=== PATIENT | female | born 1975 | race Caucasian/White ===

== ENCOUNTER 2017-04-30 09:18 | Inpatient (IN) | payer SELFPAY ==
[2017-04-30] VITALS (7 sets, daily range): BP systolic 107–123; BP diastolic 63–70; PULSE 71–89; RESP 16–18
[~2017-04-30] VITALS: Ht 152.4 cm; Wt 63.6 kg
[2017-04-30] MEDS ORDERED: HYDROCODONE/APAP (5/325) TAB PO ONE (10:30)
--- NOTE | 2017-04-30 10:45 | ERD ---
ER Documentation Chief Complaint Date/Time DATE: 04/30/17 TIME: 10:43 Chief Complaint VAG BLEED X 2 WEEKS HPI This a 42-year-old female who presents the emergency department today complaining of vaginal bleeding and some lower pelvic pain for the past 2-3 weeks. States that prior to that she had not had her period for 6 weeks. States that she went to her primary care doctor and was sent here to the emergency department. States she does not have an DEVELOPMENT SPEC and has not seen one in 4 years. Denies history of irregular menses. Denies any vomiting ,dysuria, , fevers or chills. ROS All systems reviewed and are negative except as per history of present illness. Allergies Allergies: Coded Allergies: No Known Allergy (Unverified , 04/30/17) PMhx/Soc Hx Alcohol Use: No Hx Substance Use: No Hx Tobacco Use: Yes Smoking Status: Light tobacco smoker Physical Exam Vitals Vital Signs Date Time Temp Pulse Resp B/P Pulse Ox O2 Delivery O2 Flow Rate FiO2 04/30/17 09:20 98.0 74 18 125/65 99 Physical Exam Const: No acute distress Head: Atraumatic Eyes: Normal Conjunctiva ENT: Normal External Ears, Nose and Mouth. Neck: Full range of motion..~ No meningismus. Resp: Clear to auscultation bilaterally Cardio: Regular rate and rhythm, no murmurs Abd: Soft, pelvic pain non distended. Normal bowel sounds. No tenderness McBurney's Skin: No petechiae or rashes Back: No midline or flank tenderness Ext: No cyanosis, or edema Neur: Awake and alert Psych: Normal Mood and Affect Result Diagram: 04/30/17 1020 04/30/17 1020 Results 24 hrs Laboratory Tests Test 04/30/17 10:20 04/30/17 10:43 White Blood Count 4.010^3/ul Red Blood Count 3.2210^6/ul Hemoglobin 6.8g/dl Hematocrit 24.0% Mean Corpuscular Volume 74.5fl Mean Corpuscular Hemoglobin 21.1pg Mean Corpuscular Hemoglobin Concent 28.3g/dl Red Cell Distribution Width 17.1% Platelet Count 00489^3/UL Mean Platelet Volume 9.6fl Sodium Level 145mmol/L Potassium Level 3.7mmol/L Chloride Level 98mmol/L Carbon Dioxide Level 29mmol/L Anion Gap 22 Blood Urea Nitrogen 11mg/dl Creatinine 0.61mg/dl Glucose Level 80mg/dl Calcium Level 9.4mg/dl Total Bilirubin 0.1mg/dl Direct Bilirubin 0.00mg/dl Indirect Bilirubin 0.1mg/dl Aspartate Amino Transf (AST/SGOT) 26IU/L Alanine Aminotransferase (ALT/SGPT) 33IU/L Alkaline Phosphatase 67IU/L Total Protein 8.2g/dl Albumin 4.4g/dl Globulin 3.80g/dl Albumin/Globulin Ratio 1.15 Urine Color DK. RED Urine Clarity BLOODY Urine pH 5.0 Urine Specific [place] 1.020 Urine Ketones TRACE Urine Nitrite POSITIVE Urine Bilirubin NEGATIVE Urine Urobilinogen 1.0 E.U./dL Urine Leukocyte Esterase 1+ Urine Microscopic RBC >200/HPF Urine Microscopic WBC 5-10/HPF Urine Squamous Epithelial Cells FEW/HPF Urine Bacteria FEW/HPF Urine Hemoglobin 3+ Urine Glucose NEGATIVE% Urine Total Protein 4+ Current Medications Medications (Trade) Dose Ordered Sig/Arin Route PRN Reason Start Time Stop Time Status Last Admin Dose Admin Acetaminophen/ Hydrocodone Bitart 1 tab 1 tab ONCE ONCE PO 04/30/17 10:30 04/30/17 10:31 DC 04/30/17 10:33 Ceftriaxone Sodium (Rocephin) 50 ml @ 100 mls/hr ONCE ONCE IVPB 04/30/17 12:30 04/30/17 12:59 DC 04/30/17 12:33 DIAGNOSTIC IMAGING REPORT Patient: KAYLA FARNSWORTH : 1975 Age: 42 Sex: F [id number] DOS: 04/30/17 0000 Ordering MD: ANT ALVARENGA PA-C Location: [facility] Room/Bed: PROCEDURE: US Pelvis CLINICAL INDICATION: vaginal bleeding x 3 weeks, pelvic pain TECHNIQUE: Multiple sonographic images of the pelvis were obtained utilizing a transabdominal technique. The images were reviewed on a PACS workstation. COMPARISON: None. LMP: 04/07/2017 FINDINGS: The uterus measures 18.0 x 8.5 x 13.4 cm. The endometrial echo complex is not well visualized. The uterus is heterogeneous. The right ovary is not definitely identified. The left ovary measures 7.4 x 3.7 x 6.2 cm. There is normal vascular flow in the left ovary. There is a 7.3 cm round cystic lesion in the right adnexa with eccentric low level internal echoes. It is not associated with vascular flow. There is a 3.8 x 2.7 cm isoechoic lesion with mild posterior acoustic enhancement and prominent peripheral vascular flow in the left ovary. There is an adjacent irregularly shaped oblong 3.3 x 1.6 cm cystic lesion in the left adnexa with low level internal echoes which is not associated with vascular flow. No significant pelvic free fluid is identified. IMPRESSION: The right ovary is not definitively identified although there is a 7.3 cm mildly complex cystic lesion in the right adnexa which may be ovarian in origin. Lesions of this size are incompletely evaluated with ultrasound. An MRI of the pelvis without and with intravenous contrast is recommended for further evaluation. 3.8 cm isoechoic lesion in the left ovary with prominent peripheral vascular flow. This lesion appears to be solid although it may contain cystic components given its posterior acoustic enhancement. This lesion can also be evaluated on the recommended MRI of the pelvis. 3.3 cm oblong cystic lesion in the left adnexa is nonspecific and may be a ruptured hemorrhagic/corpus luteal cyst or paraovarian cyst. It can also be reevaluated on MRI. The uterus is heterogeneous and the endometrial echo complex is not well visualized. Findings are nonspecific, but suggest adenomyosis. Clinical correlation is recommended. Of note, MRI is superior to ultrasound in the evaluation of adenomyosis. RPTAT: EE Physician Negra Date Time Electronically viewed and signed by Quinten Farley Physician on 04/30/2017 11:18 RA/ CC: ANT ALVARENGA PA-C/[facility] This 42-year-old female who presents to the emergency department today complaining of vaginal bleeding for the past 3 weeks. Patient was sent here by her primary care clinic [facility] [facility]. Sanju Kennedy with a diagnosis of possible menorrhagia. Given patient's complaints of persistent vaginal bleeding I did obtain laboratory workup as well as an ultrasound Laboratory work shows no elevated white blood cell count. Her hemoglobin is 6.8 and her hematocrit is 24. Platelets are within normal limits. Sodium is very mildly elevated otherwise electrolytes are within normal limits. Glucose within normal limits. Liver enzymes are within normal limits. UA shows positive nitrites and 1+ leukocyte esterase. Urine test is negative Ultrasound shows right ovary not definitively identified although there is 7.3 cm complex cystic lesion in the right adnexa which may be ovarian in origin. There is a 3.8 cm isoechoic lesion in the left ovary with prominent peripheral vascular flow. Lesion appears to be solid although it may contain cystic composed and given its posterior acoustic enhancement. There is a 3.3 cm oblong cystic lesion in the left adnexa nonspecific and may be ruptured hemorrhagic or corpus luteal cyst or paraovarian cyst. The uterus is heterogeneous and endometrial echo complex is not well visualized. Findings are nonspecific but may suggest adenomyosis Patient symptoms at this time is consistent with vaginal bleeding, anemia and urinary tract infection She was given Addison here in the emergency department for pain. I also give the patient Rocephin here for her urinary tract infection. Patient's hemoglobin is 6.8 and she does require transfusion at this time. I have discussed the results with Dr. Plascencia , the attending physician. I also placed a call to the laborist construction technology instructor , Dr. Perez, who is agreed to come evaluate the patient here in the emergency department. I explained the risks and benefits of transfusion to the patient including risk of hepatitis, HIV or autoimmune reaction and patient agreed to proceed Any further orders placed will be done by Dr. Plascencia, laborist or admitting physician. Departure Diagnosis: Primary Impression: Vaginal bleeding Additional Impression: Anemia Anemia type: unspecified type Qualified Code: D64.9 - Anemia, unspecified type Condition: ANT Clark PA-C Apr 30, 2017 10:45
[2017-04-30 10:55] LABS: ADD SCAN DIFF NO
[2017-04-30 11:11] LABS: ADD UMIC YES; UR BILIRUBIN (Dip) NEGATIVE (NEGATIVE); UR BLOOD (Dip) 3+ (NEGATIVE); UR COLOR DK. RED (YELLOW); UR GLUCOSE (Dip) NEGATIVE (NEGATIVE); UR KETONES (Dip) TRACE (NEGATIVE); UR LEUKOCYTE ESTERASE (Dip) 1+ (NEGATIVE); UR NITRITE (Dip) POSITIVE (NEGATIVE); UR TOTAL PROTEIN (Dip) 4+ (NEGATIVE); UR UROBILINOGEN (Dip) 1.0 E.U./dL (0.1-1.0)
[2017-04-30 11:16] LABS: ALBUMIN 4.4 g/dl (3.3-4.9); ALBUMIN/GLOBULIN RATIO 1.15; BILIRUBIN,INDIRECT 0.1 mg/dl (0-1.1); BILIRUBIN,TOTAL 0.1 mg/dl (0.2-1.3); CALCIUM 9.4 mg/dl (8.4-10.2); CREATININE 0.61 mg/dl (0.44-1.00); POTASSIUM 3.7 mmol/L (3.5-5.1); TOTAL PROTEIN 8.2 g/dl (6.1-8.1)
--- NOTE | 2017-04-30 11:18 | RADRPT ---
PROCEDURE: US Pelvis CLINICAL INDICATION: vaginal bleeding x 3 weeks, pelvic pain TECHNIQUE: Multiple sonographic images of the pelvis were obtained utilizing a transabdominal tech nique. The images were reviewed on a PACS workstation. COMPARISON: None. LMP: 04/07/2017 FINDINGS: The uterus measures 18.0 x 8.5 x 13.4 cm. The endometrial echo complex is not well visualized. The uterus is heterogeneous. The right ovary is not definitely identified. The left ovary measures 7.4 x 3.7 x 6.2 cm. There is n ormal vascular flow in the left ovary. There is a 7.3 cm round cystic lesion in the right adnexa with eccentric low level internal echoes. It is not associated with vascular flow. There is a 3.8 x 2.7 cm isoechoic lesion with mild posterior acoustic enhancement and prominent sydnee pheral vascular flow in the left ovary. There is an adjacent irregularly shaped oblong 3.3 x 1.6 cm cystic lesion in the left adnexa with low level internal echoes which is not associated with vascul ar flow. No significant pelvic free fluid is identified. IMPRESSION: The right ovary is not definitively identified although there is a 7.3 cm mildly complex cystic lesi on in the right adnexa which may be ovarian in origin. Lesions of this size are incompletely evalua levon with ultrasound. An MRI of the pelvis without and with intravenous contrast is recommended for further evaluation. 3.8 cm isoechoic lesion in the left ovary with prominent peripheral vascular flow. This lesion appe ars to be solid although it may contain cystic components given its posterior acoustic enhancement. This lesion can also be evaluated on the recommended MRI of the pelvis. 3.3 cm oblong cystic lesion in the left adnexa is nonspecific and may be a ruptured hemorrhagic/sina us luteal cyst or paraovarian cyst. It can also be reevaluated on MRI. The uterus is heterogeneous and the endometrial echo complex is not well visualized. Findings are n onspecific, but suggest adenomyosis. Clinical correlation is recommended. Of note, MRI is superior to ultrasound in the evaluation of adenomyosis. RPTAT: EE Quinten Farley Physician Date Time Electronically viewed and signed by Quinten Miguelito, Physician on 04/30/2017 11:18 RA/
[2017-04-30 11:26] LABS: UR CLARITY BLOODY (CLEAR)
[2017-04-30 11:27] LABS: UR BACTERIA FEW /HPF (NONE SEEN); UR SQUAMOUS EPITHELIAL CELL FEW /HPF (FEW); URINE RBCS >200 /HPF (0)
[2017-04-30 11:59] LABS: ABNORMAL IP MESSAGE 1; MEAN CORPUSCULAR HEMOGLOBIN 21.1 pg (29.0-33.0); MEAN CORPUSCULAR HGB CONC 28.3 g/dl (32.0-37.0); MEAN CORPUSCULAR VOLUME 74.5 fl (82.0-101.0); MEAN PLATELET VOLUME 9.6 fl (7.4-10.4); PLATELET COUNT 392 10^3/UL (140-415); RED BLOOD COUNT 3.22 10^6/ul (4.20-5.40); RED CELL DISTRIBUTION WIDTH 17.1 % (11.5-14.5)
[2017-04-30 12:03] LABS: HEMOGLOBIN 6.8 g/dl (12.0-16.0)
[2017-04-30] MEDS ORDERED: CEFTRIAXONE 1 GM/50 ML (PMX) 50 ML IVPB ONE (12:30)
[2017-04-30] MEDS ORDERED: DOCUSATE SODIUM 100 MG CAP PO PRN (16:30)
[2017-04-30] MEDS ORDERED: HYDROCODONE/APAP (5/325) TAB PO PRN (16:30)
[2017-04-30] MEDS ORDERED: NACL 0.9% 3 ML SYG IV SCH (16:30)
[2017-04-30] MEDS ORDERED: ZOLPIDEM 5 MG TAB PO PRN (16:30)
[2017-04-30] MEDS ORDERED: morphine 2 MG INJ IV PRN (16:30)
[2017-04-30] MEDS ORDERED: ONDANSETRON 4 MG INJ IV PRN (16:30)
--- NOTE | 2017-04-30 17:01 | HP ---
Date/Time of Note Date/Time of Note DATE: 04/30/17 TIME: 16:56 Assessment/Plan VTE Prophylaxis VTE Prophylaxis Intervention: SCD's Assessment/Plan Chief Complaint/Hosp Course 1. Severe anemia secondary to heavy vaginal bleeding Transfuse 2 units packed red blood cells Follow-up on gynecology recommendations Check iron panel 2. Hypernatremia D5W 3. UTI Rocephin and follow-up urine culture Prophylaxis: SCDs Problems: HPI/ROS Admit Date/Time Admit Date/Time Apr 30, 2017 at 12:55 Hx of Present Illness Patient is a 42-year-old female with no medical history, patient presents with 3 weeks of heavy vaginal bleeding. Patient denies any such excessive vaginal bleeding in the past. 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 Patient presents with pelvic pain as well as complaint of vaginal bleeding. Gynecology has already been consulted in the ED, patient has no other complaints except for headache. ROS Constitutional: improved, no complaints Eyes: no complaints ENT: no complaints Respiratory: no complaints Cardiovascular: no complaints Gastrointestinal: no complaints Genitourinary: bleeding Musculoskeletal: no complaints Skin: no complaints Neurologic: headache Endocrine: no complaints Lymphatic: no complaints Psychological: nl mood/affect, no complaints Immunologic: no complaints PMH/Family/Social Past Medical History Medical History: no pertinent history Past Surgical History Past Surgical Hx: no surgical history Family History Significant Family History: no pertinent family hx Social History Smoking Status: Current some day smoker Drug Use: none Exam/Review of Systems Vital Signs Vitals Vital Signs Date Time Temp Pulse Resp B/P Pulse Ox O2 Delivery O2 Flow Rate FiO2 04/30/17 09:20 98.0 74 18 125/65 99 Exam Constitutional: alert, oriented, well developed Psych: nl mood/affect, no complaints Head: atraumatic, normocephalic Eyes: EOMI, PERRL, nl conjunctiva, nl lids, nl sclera ENMT: nl external ears & nose, nl lips & teeth, nl nasal mucosa & septum Neck: non-tender, supple Respiratory: clear to auscultation, normal air movement Cardiovascular: nl pulses, regular rate and rhythm Gastrointestinal: nl liver, spleen, non-tender, soft Musculoskeletal: nl extremities to inspection Extremities: normal pulses Neurological: MANAGER CARDIAC II-XII intact, nl mental status, nl speech, nl strength Skin: nl turgor, No rash or lesions Lymph: nl lymph nodes Labs Result Diagram: 04/30/17 1020 04/30/17 1020 Medications Medications Current Medications Ondansetron HCl (Zofran Inj) 4 mg Q6H PRN IV NAUSEA AND/OR VOMITING; Start at 16:30 Acetaminophen (Tylenol Tab) 650 mg Q6H PRN PO PAIN LEVEL 1-3 OR FEVER; Start at 16:30 Acetaminophen/ Hydrocodone Bitart ([place] (5/325)) 1 tab Q6H PRN PO MODERATE PAIN LEVEL 4-6; Start 04/30/17 at 16:30 Morphine Sulfate (morphine) 2 mg Q4H PRN IV SEVERE PAIN LEVEL 7-10; Start 04/30 at 16:30 Docusate Sodium (Colace) 100 mg Q12H PRN PO CONSTIPATION; Start 04/30/17 at 16: 30 Zolpidem Tartrate 5 mg 5 mg QHS PRN PO SLEEP; Start 04/30/17 at 16:30 Dextrose 1,000 ml @ 100 mls/hr Q10H IV ; Start 04/30/17 at 16:30; Stop at 12:29 Ceftriaxone Sodium (Rocephin) 50 ml @ 100 mls/hr Q24H IVPB ; Start 05/01/17 at 12:30 Procedures Procedures Pelvic ultrasound: The right ovary is not definitively identified although there is a 7.3 cm mildly complex cystic lesion in the right adnexa which may be ovarian in origin. Lesions of this size are incompletely evaluated with ultrasound. An MRI of the pelvis without and with intravenous contrast is recommended for further evaluation. 3.8 cm isoechoic lesion in the left ovary with prominent peripheral vascular flow. This lesion appears to be solid although it may contain cystic components given its posterior acoustic enhancement. This lesion can also be evaluated on the recommended MRI of the pelvis. 3.3 cm oblong cystic lesion in the left adnexa is nonspecific and may be a ruptured hemorrhagic/corpus luteal cyst or paraovarian cyst. It can also be reevaluated on MRI. The uterus is heterogeneous and the endometrial echo complex is not well visualized. Findings are nonspecific, but suggest adenomyosis. Clinical correlation is recommended. Of note, MRI is superior to ultrasound in the evaluation of adenomyosis. JACOB BASHIR Apr 30, 2017 17:01
[2017-04-30] MEDS: DEXTROSE 5% 1,000 ML IV SCH (18:11)
[2017-05-01] VITALS (12 sets, daily range): BP systolic 11–131; BP diastolic 50–78; PULSE 77–104; RESP 14–20
[2017-05-01] MEDS: ACETAMINOPHEN 325 MG TAB PO PRN (01:52)
[2017-05-01 07:30] LABS: BASOPHILS % 0.4 % (0.0-2.0); EOSINOPHILS % 0.3 % (0.0-7.0); HEMATOCRIT 29.2 % (37.0-47.0); LYMPHOCYTES # 0.8 10^3/ul (0.8-2.9); LYMPHOCYTES % 10.6 % (15.0-51.0); MEAN CORPUSCULAR HEMOGLOBIN 24.1 pg (29.0-33.0); MEAN CORPUSCULAR HGB CONC 30.8 g/dl (32.0-37.0); MEAN CORPUSCULAR VOLUME 78.3 fl (82.0-101.0); MEAN PLATELET VOLUME 9.3 fl (7.4-10.4); MONOCYTE # 0.4 10^3/ul (0.3-0.9); NEUTROPHIL # 5.9 10^3/ul (1.6-7.5); NEUTROPHILS % 83.3 % (39.0-77.0); PLATELET COUNT 339 10^3/UL (140-415); RED BLOOD COUNT 3.73 10^6/ul (4.20-5.40); RED CELL DISTRIBUTION WIDTH 19.8 % (11.5-14.5); WHITE BLOOD COUNT 7.1 10^3/ul (4.8-10.8)
[2017-05-01 07:37] LABS: IRON 39 ug/dl (35-150)
[2017-05-01 07:39] LABS: CALCIUM 8.5 mg/dl (8.4-10.2); CHOL/HDL RATIO 2.3 RATIO; CREATININE 0.57 mg/dl (0.44-1.00); MAGNESIUM 1.9 mg/dl (1.7-2.5); PHOSPHORUS 3.4 mg/dl (2.5-4.9); POTASSIUM 4.2 mmol/L (3.5-5.1)
[2017-05-01 07:47] LABS: TOTAL IRON BINDING CAPACITY 404 ug/dl (241-421)
[2017-05-01] MEDS: DEXTROSE 5% 1,000 ML IV SCH (08:00)
--- NOTE | 2017-05-01 09:36 | QN ---
Documentation Comment Patient is a 42-year-old 5 para 3 with history of 1, 1 , 1, TOP 2 Patient been admitted with diagnosis of menometrorrhagia, severe anemia and pelvic pain for the last 3 weeks Status post 2 units of packed RBCs Hemoglobin today is 9 Patient is tolerating a regular diet PROCEDURE: US Pelvis CLINICAL INDICATION: vaginal bleeding x 3 weeks, pelvic pain TECHNIQUE: Multiple sonographic images of the pelvis were obtained utilizing a transabdominal technique. The images were reviewed on a PACS workstation. COMPARISON: None. LMP: 04/07/2017 FINDINGS: The uterus measures 18.0 x 8.5 x 13.4 cm. The endometrial echo complex is not well visualized. The uterus is heterogeneous. The right ovary is not definitely identified. The left ovary measures 7.4 x 3.7 x 6.2 cm. There is normal vascular flow in the left ovary. There is a 7.3 cm round cystic lesion in the right adnexa with eccentric low level internal echoes. It is not associated with vascular flow. There is a 3.8 x 2.7 cm isoechoic lesion with mild posterior acoustic enhancement and prominent peripheral vascular flow in the left ovary. There is an adjacent irregularly shaped oblong 3.3 x 1.6 cm cystic lesion in the left adnexa with low level internal echoes which is not associated with vascular flow. No significant pelvic free fluid is identified. IMPRESSION: The right ovary is not definitively identified although there is a 7.3 cm mildly complex cystic lesion in the right adnexa which may be ovarian in origin. Lesions of this size are incompletely evaluated with ultrasound. An MRI of the pelvis without and with intravenous contrast is recommended for further evaluation. 3.8 cm isoechoic lesion in the left ovary with prominent peripheral vascular flow. This lesion appears to be solid although it may contain cystic components given its posterior acoustic enhancement. This lesion can also be evaluated on the recommended MRI of the pelvis. 3.3 cm oblong cystic lesion in the left adnexa is nonspecific and may be a ruptured hemorrhagic/corpus luteal cyst or paraovarian cyst. It can also be reevaluated on MRI. The uterus is heterogeneous and the endometrial echo complex is not well visualized. Findings are nonspecific, but suggest adenomyosis. Clinical correlation is recommended. Of note, MRI is superior to ultrasound in the evaluation of adenomyosis. RPTAT: EE Quinten Farley, Physician Date Time Electronically viewed and signed by Quinten Farley, Physician on 04/30/2017 11:18 RA/ CC: ANT ALVARENGA PA-C A/P Adenomyosis and complex cystic adnexal mass measuring 7.3 cm Pelvic MRI with and without contrast was ordered to be done today CA125 to be done Patient should be taking iron twice daily Patient was counseled that she would require total hysterectomy and possible bilateral salpingo-oophorectomy Patient needs to be scheduled as an outpatient with her fire marshal for surgery Patient to be arranged by a patient liaison for an appointment with SERVANDO Villeda MD May 01, 2017 09:36
[2017-05-01] MEDS ORDERED: SOD FERRIC GLUC COMPLX 125 MG in SOD CHLORIDE 0.9% 100 ML IVPB ONE (11:00)
[2017-05-01 12:06] LABS: CANCER ANTIGEN 125 6.1 U/ml (0.0-35.0); CARCINOEMBRYONIC ANTIGEN 1.2 ng/ml (0.0-5.0)
--- NOTE | 2017-05-01 13:42 | PN ---
Date/Time of Note Date/Time of Note DATE: 05/01/17 TIME: 13:34 Assessment/Plan VTE Prophylaxis VTE Prophylaxis Intervention: SCD's Lines/Catheters IV [facility] (from [facility] Peripheral IV Urinary Cath still in place: No Assessment/Plan Chief Complaint/Hosp Course 1. Severe anemia secondary to heavy vaginal bleeding from Adenomyosis and complex cystic adnexal mass measuring 7.3 cm Pelvic MRI with and without contrast was ordered to be done today Status post 2 units packed red blood cells Gynecology consultation appreciated and recommendation is for outpatient hysterectomy and possible bilateral salpingo-oophorectomy, patient to be arranged to follow-up with Dr. Dr.Eisenkop Shaffer IV today and will start iron p.o. tomorrow 2. Hypernatremia-resolved DC D5W 3. UTI Continue empiric Rocephin and follow-up urine culture Prophylaxis: SCDs Problems: Subjective 24 Hr Interval Summary Constitutional: no complaints Exam/Review of Systems Vital Signs Vitals Vital Signs Date Time Temp Pulse Resp B/P Pulse Ox O2 Delivery O2 Flow Rate FiO2 05/01/17 08:00 97.4 82 20 94/50 100 Intake and Output 04/30/17 04/30/17 05/01/17 14:59 22:59 06:59 Intake Total 400 ml 1530 ml Balance 400 ml 1530 ml Exam Constitutional: alert, oriented Respiratory: clear to auscultation Cardiovascular: regular rate and rhythm Gastrointestinal: soft, No distended Musculoskeletal: nl extremities to inspection Results Result Diagram: 05/01/17 0618 05/01/17 0618 Results 24 hrs Laboratory Tests Test 05/01/17 06:18 05/01/17 07:05 White Blood Count 7.1 # Red Blood Count 3.73 L Hemoglobin 9.0 #L Hematocrit 29.2 #L Mean Corpuscular Volume 78.3 L Mean Corpuscular Hemoglobin 24.1 L Mean Corpuscular Hemoglobin Concent 30.8 L Red Cell Distribution Width 19.8 H Platelet Count 339 Mean Platelet Volume 9.3 Neutrophils % 83.3 H Lymphocytes % 10.6 L Monocytes % 5.0 Eosinophils % 0.3 Basophils % 0.4 Nucleated Red Blood Cells % 0.0 Neutrophils # 5.9 Lymphocytes # 0.8 Monocytes # 0.4 Eosinophils # 0.0 Basophils # 0.0 Nucleated Red Blood Cells # 0.0 Sodium Level 140 Potassium Level 4.2 Chloride Level 100 Carbon Dioxide Level 28 Anion Gap 16 Blood Urea Nitrogen 9 Creatinine 0.57 Glucose Level 112 Hemoglobin A1c 5.4 Calcium Level 8.5 Phosphorus Level 3.4 Magnesium Level 1.9 Iron Level 39 Total Iron Binding Capacity 404 Percent Iron Saturation 10 L Triglycerides Level 42 Cholesterol Level 129 LDL Cholesterol, Calculated 67 HDL Cholesterol 54 Cholesterol/HDL Ratio 2.3 Carcinoembryonic Antigen 1.2 CA 125 Antigen 6.1 Lab Scanned Report BLOOD TRANSFUSION Medications Medications Current Medications Ondansetron HCl (Zofran Inj) 4 mg Q6H PRN IV NAUSEA AND/OR VOMITING; Start at 16:30 Acetaminophen (Tylenol Tab) 650 mg Q6H PRN PO PAIN LEVEL 1-3 OR FEVER Last administered on 05/01/17t 01:52; Admin Dose 650 MG; Start 04/30/17 at 16:30 Acetaminophen/ Hydrocodone Bitart ([place] (5/325)) 1 tab Q6H PRN PO MODERATE PAIN LEVEL 4-6; Start 04/30/17 at 16:30 Morphine Sulfate (morphine) 2 mg Q4H PRN IV SEVERE PAIN LEVEL 7-10; Start 04/30 at 16:30 Docusate Sodium (Colace) 100 mg Q12H PRN PO CONSTIPATION; Start 04/30/17 at 16: 30 Zolpidem Tartrate 5 mg 5 mg QHS PRN PO SLEEP; Start 04/30/17 at 16:30 Ceftriaxone Sodium (Rocephin) 50 ml @ 100 mls/hr Q24H IVPB ; Start 05/01/17 at 12:30 Ferrous Sulfate (Ferrous Sulfate (Ec)) 325 mg BID PO ; Start 05/02/17 at 09:00 JACOB BASHIR May 01, 2017 13:42
[2017-05-01] MEDS: CEFTRIAXONE 1 GM/50 ML (PMX) 50 ML IVPB SCH (15:08)
[2017-05-02 02:26] VITALS: BP 101/56; RESP 18
[2017-05-02 07:04] LABS: CALCIUM 8.9 mg/dl (8.4-10.2); CREATININE 0.52 mg/dl (0.44-1.00); POTASSIUM 3.8 mmol/L (3.5-5.1)
[2017-05-02 08:00] VITALS: BP 122/75; RESP 21
[2017-05-02] MEDS: FERROUS SULFATE (EC) 325 MG TAB PO SCH ×2 (09:07→20:27)
[2017-05-02] MEDS: ACETAMINOPHEN 325 MG TAB PO PRN (09:07)
[2017-05-02] MEDS: CEFTRIAXONE 1 GM/50 ML (PMX) 50 ML IVPB SCH (13:20)
[2017-05-02 14:00] VITALS: BP 111/58; RESP 20
--- NOTE | 2017-05-02 18:32 | QN ---
Documentation Comment pt doing well vss exam wnl minmimal bleeding a/p menorrhagia s/p prbc-now stable awaiting MRI results. if results no suspicous for malignancy may DC home with OBGYn CURTIS Byrnes MD May 02, 2017 18:32
--- NOTE | 2017-05-02 19:09 | PN ---
Date/Time of Note Date/Time of Note DATE: 05/02/17 TIME: 19:01 Assessment/Plan VTE Prophylaxis VTE Prophylaxis Intervention: SCD's Lines/Catheters IV C[facility]ter Type (from [facility] Peripheral IV Urinary Cath still in place: No Assessment/Plan Chief Complaint/Hosp Course 1. Severe anemia secondary to heavy vaginal bleeding from Adenomyosis and complex cystic adnexal mass measuring 7.3 cm Pelvic MRI with and without contrast has been done and results are pending Status post 2 units packed red blood cells Gynecology consultation appreciated and recommendation is that patient can be discharged home and follow-up with outpatient gynecology if MRI is negative for malignancy, patient should be evaluated for outpatient hysterectomy and possible bilateral salpingo-oophorectomy, recommendation of gynecology is also for patient to be arranged to follow-up with Dr. Arevalo as an outpatient Status post Ferrlecit IV, continue p.o. iron 2. Hypernatremia-resolved DC D5W 3. UTI Urine culture shows diphtheroids and gram variable rods Continue Rocephin Prophylaxis: SCDs Discharge planning: MRI results are pending and patient to be discharged home if MRI is negative for malignancy, patient to follow-up with gynecology as outpatient Problems: Subjective 24 Hr Interval Summary Constitutional: no complaints Exam/Review of Systems Vital Signs Vitals Vital Signs Date Time Temp Pulse Resp B/P Pulse Ox O2 Delivery O2 Flow Rate FiO2 05/02/17 14:00 98.3 80 20 111/58 99 Intake and Output 05/01/17 05/01/17 05/02/17 15:00 23:00 07:00 Intake Total 600 ml 950 ml Balance 600 ml 950 ml Exam Constitutional: alert, oriented Respiratory: clear to auscultation Cardiovascular: regular rate and rhythm Gastrointestinal: soft, No distended Musculoskeletal: nl extremities to inspection Results Result Diagram: 05/01/17 0618 05/02/17 0518 Results 24 hrs Laboratory Tests Test 05/02/17 05:18 05/02/17 06:13 Sodium Level 142 Potassium Level 3.8 Chloride Level 99 Carbon Dioxide Level 30 Anion Gap 17 H Blood Urea Nitrogen 8 Creatinine 0.52 Glucose Level 90 Calcium Level 8.9 Lab Scanned Report BLOOD TRANSFUSION Medications Medications Current Medications Ondansetron HCl (Zofran Inj) 4 mg Q6H PRN IV NAUSEA AND/OR VOMITING; Start at 16:30 Acetaminophen (Tylenol Tab) 650 mg Q6H PRN PO PAIN LEVEL 1-3 OR FEVER Last administered on 05/02/17 09:07; Admin Dose 650 MG; Start 04/30/17 at 16:30 Acetaminophen/ Hydrocodone Bitart ([place] (5/325)) 1 tab Q6H PRN PO MODERATE PAIN LEVEL 4-6; Start 04/30/17 at 16:30 Morphine Sulfate (morphine) 2 mg Q4H PRN IV SEVERE PAIN LEVEL 7-10; Start 04/30 at 16:30 Docusate Sodium (Colace) 100 mg Q12H PRN PO CONSTIPATION; Start 04/30/17 at 16: 30 Zolpidem Tartrate 5 mg 5 mg QHS PRN PO SLEEP; Start 04/30/17 at 16:30 Ceftriaxone Sodium (Rocephin) 50 ml @ 100 mls/hr Q24H IVPB Last administered on 05/02/17 13:20; Admin Dose 100 MLS/HR; Start 05/01/17 at 12:30 Ferrous Sulfate (Ferrous Sulfate (Ec)) 325 mg BID PO Last administered on 09:07; Admin Dose 325 MG; Start 05/02/17 at 09:00 JACOB BASHIR May 02, 2017 19:09
[2017-05-02 20:35] VITALS: BP 124/76; RESP 18
[2017-05-03 02:56] VITALS: BP 113/60; RESP 18
[2017-05-03 05:59] LABS: BASOPHIL # 0.1 10^3/ul (0.0-0.1); EOSINOPHILS # 0.2 10^3/ul (0.0-0.5); EOSINOPHILS % 3.3 % (0.0-7.0); HEMATOCRIT 29.7 % (37.0-47.0); HEMOGLOBIN 8.9 g/dl (12.0-16.0); LYMPHOCYTES # 2.3 10^3/ul (0.8-2.9); LYMPHOCYTES % 32.5 % (15.0-51.0); MEAN CORPUSCULAR HEMOGLOBIN 23.5 pg (29.0-33.0); MEAN CORPUSCULAR VOLUME 78.6 fl (82.0-101.0); MEAN PLATELET VOLUME 9.4 fl (7.4-10.4); MONOCYTE # 0.7 10^3/ul (0.3-0.9); MONOCYTES % 10.2 % (0.0-11.0); NEUTROPHIL # 3.6 10^3/ul (1.6-7.5); NEUTROPHILS % 52.1 % (39.0-77.0); NUCLEATED RED BLOOD CELLS # 0.1 10^3/ul (0.0-0.0); NUCLEATED RED BLOOD CELLS% 0.7 /100WBC (0.0-0.0); PLATELET COUNT 294 10^3/UL (140-415); RED BLOOD COUNT 3.78 10^6/ul (4.20-5.40); RED CELL DISTRIBUTION WIDTH 21.4 % (11.5-14.5); WHITE BLOOD COUNT 6.9 10^3/ul (4.8-10.8)
--- NOTE | 2017-05-03 06:57 | RADRPT ---
PROCEDURE: MR Pelvis with and without contrast. CLINICAL INDICATION: Pelvic pain. TECHNIQUE: Protocol: MRI of the pelvis with and without intravenous contrast using a female pelvis soft tisssu e protocol. Contrast: 10 cc of intravenous Magnevist. COMPARISON: Ultrasound, 04/30/2017. FINDINGS: There is a large mass measuring approximately 14.4 x 8.3 x 18 cm (AP x TR x CC) identified in the right adnexa. There is associated leftward deviation of the uterus. There is no radiologic evidenc e of adenomyosis. The endometrium is normal thickness without a focal abnormality. Multiple small Nabothian cysts are noted within the cervix There is also a large cyst within the right adnexa measuring approximately 6.8 cm in maximal diamete r. There is also a 2.5 cm cyst noted within the left adnexa. Pelvic sidewalls and inguinal groin regions are unremarkable. No lymphadenopathy. Decompressed urinary bladder is grossly unremarkable. Marrow signal is within normal limits. IMPRESSION: Large mass noted in the right adnexa, occupying a significant portion of the pelvis with leftward de viation of the uterus is likely a broad ligament versus right anterior subserosal uterine fibroid. Simple 6.8 cm cyst also noted in the right adnexa. RPTAT: EE .Chai Oates MD, MD Date Time Electronically viewed and signed by .Chai Oates MD, MD on 05/03/2017 07:02 .C/
--- NOTE | 2017-05-03 07:54 | QN ---
Documentation Comment MRi with large fibroid and simple ovarian cyst loop sewer cleared to DC home and pt will need outpatient SHANKER OUT eval for myomecotmy versus hysterectomy thank you for consult. CURTIS PADILLA MD May 03, 2017 07:54
[2017-05-03 07:55] VITALS: BP 120/65; RESP 16
[2017-05-03] MEDS: ACETAMINOPHEN 325 MG TAB PO PRN (08:50)
[2017-05-03] MEDS: FERROUS SULFATE (EC) 325 MG TAB PO SCH (08:50)
--- NOTE | 2017-05-03 10:03 | PDOCDIS ---
Discharge Instructions DIAGNOSIS Discharge Diagnosis Menorrhagia. CONDITION Patient Condition: Stable HOME CARE INSTRUCTIONS: Diet Instructions: RegularSpecial Diet: regular OTHER ORDERS: Other Orders: 1. Follow up with outpatient RESTORATIVE COORDINATOR at the earliest. 2. Regular diet. 3. Activities as tolerated. 4. Go to the nearest emergency room if you continues to have significant vaginal bleeding, if you feel dizzy, or any other unusual signs/symptoms ARMAND FITCH NP May 03, 2017 10:03
[2017-05-03] MEDS ORDERED: FER325 PO (10:07)
[2017-05-03] MEDS ORDERED: CEPH500C PO (10:07)
--- NOTE | 2017-05-03 10:20 | DS ---
Date/Time of Note Date/Time of Note DATE: 05/03/17 TIME: 10:19 Discharge Summary Admission/Discharge Info Admit Date/Time Apr 30, 2017 at 12:55 Discharge Date/Time Discharge Diagnosis 1. Menorrhagia secondary to adenomyosis and complex cystic adnexal mass measuring 7.3 cm 2. Microcytic, hypochromic anemia secondary to acute blood loss from menorrhagia. 3. Urinary tract infection. Patient Condition: Stable Consults 1. Dario Cooley MD, LANDCARE FACILITATOR. 2. Holly Abdi MD. LANDCARE FACILITATOR Procedures Pelvis MRI IMPRESSION: Large mass noted in the right adnexa, occupying a significant portion of the pelvis with leftward deviation of the uterus is likely a broad ligament versus right anterior subserosal uterine fibroid. Simple 6.8 cm cyst also noted in the right adnexa. Pelvic Ultrasound IMPRESSION: The right ovary is not definitively identified although there is a 7.3 cm mildly complex cystic lesion in the right adnexa which may be ovarian in origin. Lesions of this size are incompletely evaluated with ultrasound. An MRI of the pelvis without and with intravenous contrast is recommended for further evaluation. 3.8 cm isoechoic lesion in the left ovary with prominent peripheral vascular flow. This lesion appears to be solid although it may contain cystic components given its posterior acoustic enhancement. This lesion can also be evaluated on the recommended MRI of the pelvis. 3.3 cm oblong cystic lesion in the left adnexa is nonspecific and may be a ruptured hemorrhagic/corpus luteal cyst or paraovarian cyst. It can also be reevaluated on MRI. The uterus is heterogeneous and the endometrial echo complex is not well visualized. Findings are nonspecific, but suggest adenomyosis. Clinical correlation is recommended. Of note, MRI is superior to ultrasound in the evaluation of adenomyosis. Hx of Present Illness Patient is a 42-year-old female with no medical history. The patient presents with 3 weeks of heavy vaginal bleeding. Patient denies any such excessive vaginal bleeding in the past. Patient does not follow up with any retort pre cooker. Patient presents with pelvic pain as well as complaint of vaginal bleeding. Gynecology has already been consulted in the ED, patient has no other complaints except for headache. Hospital Course Patient was admitted to inpatient medical surgical floor. The patient received 2 units of PRBC transfusion. The patient had a hemoglobin of 6.8 upon presentation. The patient's anemia was concluded to be secondary to underlying menorrhagia. The patient had no evidence of any significant iron deficiency other than a low iron saturation. The patient underwent a pelvic ultrasound that showed 7.3 mildly complex cystic lesion in the right adnexa, 3.8 cm isoechoic lesion in the left ovary and a 3.3 cm oblong cystic lesion in the left adnexa. The patient subsequently underwent a pelvic MRI that showed a large mass in the right adnexa occupying a significant portion of the pelvis with leftward deviation of the uterus and a simple 6.8 cm cyst in the right adnexa. LANDCARE FACILITATOR evaluated the patient and the LANDCARE FACILITATOR recommended outpatient REPLACER eval for myomectomy versus hysterectomy. The patient's bleeding has completely stopped. The patient also had a urinary tract infection. The patient was maintained on antibiotics for the same. The patient's final cultures are still pending. The patient has no evidence of any septic shock. The patient will be discharged home on oral antibiotics. Patient had a stable hospital course. Discharge Instructions 1. Follow up with outpatient LANDCARE FACILITATOR at the earliest. 2. Regular diet. 3. Activities as tolerated. 4. Go to the nearest emergency room if you continues to have significant vaginal bleeding, if you feel dizzy, or any other unusual signs/symptoms The patient verbalized understanding of her discharge instructions. At this time I would like to thank all the consultants for seeing the patient and providing clinical recommendations. Case discussed with Dr. Haddad. Home Meds Active Scripts Ferrous Sulfate* (Ferrous Sulfate*) 325 Mg Tabec, 325 MG PO BID for 30 Days, # 60 TAB Prov:ARMAND FITCH CONTRACT SHELTERED WORKSHOP SUPERVISOR 05/03/17 Cephalexin* (Cephalexin*) 500 Mg Capsule, 500 MG PO Q8 for 7 Days, #21 CAP Prov:ARMAND FITCH CONTRACT SHELTERED WORKSHOP SUPERVISOR 05/03/17 Follow-up Plan Follow-up with outpatient REPLACER at the earliest. Primary Care Provider Care Physician No Primary Time spent on discharge: > 30 minutes Pending Labs Laboratory Tests Test 05/03/17 04:30 White Blood Count 6.910^3/ul (4.8-10.8) Red Blood Count 3.7810^6/ul (4.20-5.40) Hemoglobin 8.9g/dl (12.0-16.0) Hematocrit 29.7% (37.0-47.0) Mean Corpuscular Volume 78.6fl (82.0-101.0) Mean Corpuscular Hemoglobin 23.5pg (29.0-33.0) Mean Corpuscular Hemoglobin Concent 30.0g/dl (32.0-37.0) Red Cell Distribution Width 21.4% (11.5-14.5) Platelet Count 81847^3/UL (140-415) Mean Platelet Volume 9.4fl (7.4-10.4) Neutrophils % 52.1% (39.0-77.0) Lymphocytes % 32.5% (15.0-51.0) Monocytes % 10.2% (0.0-11.0) Eosinophils % 3.3% (0.0-7.0) Basophils % 1.0% (0.0-2.0) Nucleated Red Blood Cells % 0.7/100WBC (0.0-0.0) Neutrophils # 3.610^3/ul (1.6-7.5) Lymphocytes # 2.310^3/ul (0.8-2.9) Monocytes # 0.710^3/ul (0.3-0.9) Eosinophils # 0.210^3/ul (0.0-0.5) Basophils # 0.110^3/ul (0.0-0.1) Nucleated Red Blood Cells # 0.110^3/ul (0.0-0.0) ARMAND FITCH NP May 03, 2017 10:20
== END 2017-05-03 11:32 | disposition home or self-care (01) | DRG 760 ==
LOC: FTE 09:18 → PP2 12:55
PROVIDERS: ADMIT Internal Medicine; ATTEND Internal Medicine
PROC: 30233N1 Transfusion of Nonautologous Red Blood Cells into Peripheral Vein, Percutaneous Approach (ICD-10-PCS; principal; 2017-04-30)
DX: N83.291 Other ovarian cyst, right side (principal); E87.0 Hyperosmolality and hypernatremia; N39.0 Urinary tract infection, site not specified; D62 Acute posthemorrhagic anemia; N83.292 Other ovarian cyst, left side; F17.200 Nicotine dependence, unspecified, uncomplicated; N92.0 Excessive and frequent menstruation with regular cycle
CPT/HCPCS: 36430; 72197; 76856; 80048; 80053; 80061; 81001; 82378; 83036; 83540; 83735; 84100; 85025; 86304; 86850; 86900; 86901; 86920; 87086; J0696; J2916; J7070; P9016